=== PATIENT | male | born 1980 | race Caucasian/White ===

== ENCOUNTER → 2018-10-18 | Emergency (ER) | payer MEDICAID ==
[~2018-10-18] MED LIST: INS GLAR 100 UN/ML (ER ONLY) 100 UNIT/ML SUBQ ONE; INSU100I30 SQ; LISI-362 PO
--- NOTE | 2018-10-18 20:58 | ER Report ---
History and Physical Time Seen By MD: 20:58 HPI/ROS CHIEF COMPLAINT: needs insulin HISTORY OF PRESENT ILLNESS: 38 year old male presents to ED with need for refill of insulin pen. Patient is from [place] and has been working on the [employer] for the past month and he will continue to be hear another month. He ran out of his insulin and lisinopril about two weeks ago. Patient states he takes lantus BID and lisinopril daily. He is also supposed to be taking a short acting insulin, however he hasn't taken for quite sometime, is out of this med, and does not know the medication. Patient reports polydipsia, blurry vision, tingling in his feet. No polyuria, nausea, vomiting, chest pain, SOB. Allergies: Coded Allergies: No Known Drug Allergies (Unverified , 10/18/18) Home Meds Active Scripts Lisinopril (LISINOPRIL) 10 Mg Tablet, 10 MG PO QDAY for 30 Days, #30 TAB Prov:DWAYNE MENEZES 10/18/18 Insulin Glargine 100 Un/Ml Pen (LANTUS SOLOSTAR PEN) 100 Unit/1 Ml Insuln.pen, 100 UNIT SQ BID, #1 PEN Take 20 units in the morning and 30 units at night. Prov:DWAYNE MENEZES 10/18/18 Past Medical/Surgical History Past medical hx of diabetes and right wrist fracture. Past surgical hx of umbilical hernia repair. Reviewed Nurses Notes: Yes Constitutional Vital Sign - Last 24 Hours 10/18/18 10/18/18 10/18/18 10/18/18 20:55 20:59 21:00 21:05 Pulse 97 100 97 Resp 20 B/P (MAP) 137/93 137/93 (108) Pulse Ox 92 92 92 O2 Delivery Room Air 10/18/18 10/18/18 10/18/18 10/18/18 21:10 21:15 21:20 21:25 Pulse 96 96 95 95 Pulse Ox 93 92 92 92 10/18/18 10/18/18 21:30 21:35 Pulse 95 94 B/P (MAP) 138/88 (105) Pulse Ox 90 93 Physical Exam General appearance: Alert no distress. Respiratory: Chest is non tender, lungs are clear to auscultation. Cardiac: Regular rate and rhythm DIFFERENTIAL DIAGNOSIS: After history and physical exam differential diagnosis was considered for Diabetes. Medical Decision Making Data Points Laboratory Hematology Test 10/18/18 21:09 Whole Blood Glucose 278 mg/DL (75-110) Chemistry Test 10/18/18 21:09 Whole Blood Glucose 278 mg/DL (75-110) ED Course/Re-evaluation ED Course Upon arrival to the ED, patient admitted to an exam room, hx and physical obtained, differentials considered. Patient is from [place] and has been working on the [employer] for the past month and he will continue to be hear another month. He ran out of his insulin and lisinopril about two weeks ago. Patient states he takes lantus BID and lisinopril daily. He is also supposed to be taking a short acting insulin, however he hasn't taken for quite sometime, is out of this med, and does not know the medication. Patient reports polydipsia, blurry vision, tingling in his feet. No polyuria, nausea, vomiting, chest pain, SOB. Blood glucose currently 278. Will give nighttime dose of lantus before he l eaves the ED. Called patient's pharmacy to try to get a list of his meds, however [facility] is completely closed. Called [facility] as this is the pharmacy [facility] transfered to, but they had no record of this patient. Will give patient a prescription for lantus and lisinopril and have him follow-up with a PCP in [facility]. Patient agrees with plan of care. Decision to Disposition Date: Oct 18, 2018 Decision to Disposition Time: 21:47 Depart Departure Latest Vital Signs Vital Signs Date Time Temp Pulse Resp B/P (MAP) Pulse Ox O2 Delivery O2 Flow Rate FiO2 10/18/18 21:35 94 93 10/18/18 21:30 138/88 (105) 10/18/18 20:55 20 Room Air Impression: Primary Impression: Diabetes Condition: Condition Unchanged Disposition: HOME OR SELF-CARE New Scripts Lisinopril (LISINOPRIL) 10 Mg Tablet 10 MG PO QDAY for 30 Days, #30 TAB Prov: DWAYNE MENEZES 10/18/18 Insulin Glargine 100 Un/Ml Pen (LANTUS SOLOSTAR PEN) 100 Unit/1 Ml Insuln.pen 100 UNIT SQ BID, #1 PEN Take 20 units in the morning and 30 units at night. Prov: DWAYNE MENEZES 10/18/18 Patient Instructions: Type 2 Diabetes in Adults (DC) Additional Instructions: Please drink plenty of water and get plenty of rest. Take insulin twice a day as ordered. Please follow-up with a primary care provider in town to get refills of medication and manage your diabetes. Please return to the ER with any difficulty breathing, high blood pressure, or any other concerns. Problem Qualifiers Primary Impression: Diabetes Diabetes mellitus type: type 2 Diabetes mellitus intermediate school teacher insulin use: with intermediate school teacher use Diabetes mellitus complication status: with hyperglycemia Qualified Codes: E11.65 - Type 2 diabetes mellitus with hyperglycemia; Z79.4 - terminal operations supervisor (current) use of insulin DWAYNE MENEZES Oct 18, 2018 20:58
[2018-10-18 21:30] VITALS: BP 138/88
== END ==
LOC: ER 21:04
DX: E11.65 Type 2 diabetes mellitus with hyperglycemia (principal)
CPT/HCPCS: 36416; 82948; 99282; J1815

== ENCOUNTER 2018-12-09 22:00 | Emergency (ER) | payer MEDICAID ==
[~2018-12-09 22:00] MED LIST changes: -INS GLAR 100 UN/ML (ER ONLY) 100 UNIT/ML SUBQ ONE
[2018-12-09] MEDS ORDERED: METF-452 PO (22:12)
--- NOTE | 2018-12-09 22:23 | ER Report ---
History and Physical Time Seen By MD: 22:17 Hx. of Stated Complaint: PT REPORTS CHEST PAIN FOR 2 DAYS. WORSENING TODAY. PT REPORTS HE HAS HAD PAIN LIKE THIS BEFORE. HPI/ROS CHIEF COMPLAINT: Chest pain 2 days HISTORY OF PRESENT ILLNESS: 38-year-old male type II diabetic on metformin for several years, presents ambulatory to the ER complaining of left pectoralis and left shoulder pain. He notes some numbness down his left arm, some shortness of breath, some nausea. Patient denies cardiac history. Patient notes aggravation and increased pain with flexing of his pectoralis muscles and flexing of his neck onto his chest. Patient recalls no specific injury. Patient denies fever, chills, productive cough or shortness of breath. Patient denies leg swelling or calf pain. REVIEW OF SYSTEMS: Respiratory: No cough, no dyspnea. Cardiovascular: As above Gastrointestinal: No vomiting, no abdominal pain. Musculoskeletal: No back pain. Allergies: Coded Allergies: No Known Drug Allergies (Unverified , 12/09/18) Home Meds Active Scripts Lisinopril (LISINOPRIL) 10 Mg Tablet, 10 MG PO QDAY for 30 Days, #30 TAB Prov:DWAYNE MENEZES [facility] 10/18/18 Reported Medications Metformin Hcl (METFORMIN HCL) 1,000 Mg Tablet, 1 TAB PO BID, TAB 12/09/18 Discontinued Scripts Insulin Glargine 100 Un/Ml Pen (LANTUS SOLOSTAR PEN) 100 Unit/1 Ml Insuln.pen, 100 UNIT SQ BID, #1 PEN Take 20 units in the morning and 30 units at night. Prov:DWAYNE MENEZES [facility] 10/18/18 Reviewed Nurses Notes: Yes Old Medical Records Reviewed: Yes Hx Substance Use Disorder: No Hx Alcohol Use: No Constitutional Vital Sign - Last 24 Hours 12/09/18 12/09/18 12/09/18 12/09/18 22:02 22:04 22:15 22:30 Temp 98.3 Pulse 80 82 78 Resp 18 11 28 B/P (MAP) 147/89 (108) 147/89 132/79 (96) Pulse Ox 95 94 93 O2 Delivery Room Air 12/09/18 12/09/18 22:45 23:00 Pulse 75 74 Resp 23 13 B/P (MAP) 125/83 (97) Pulse Ox 93 93 Physical Exam Vital signs stable, afebrile, pulse ox normal General Appearance: The patient is alert, has no immediate need for airway protection and no current signs of toxicity. No acute distress HEENT: Pupils equal and round no injection. TMs normal, oropharynx no redness or exudate, mucous. Membranes are moist Respiratory: Chest is non tender, lungs are clear to auscultation., No chest wall tenderness Cardiac: regular rate and rhythm Gastrointestinal: Abdomen is soft and non tender, no masses, bowel sounds normal. Musculoskeletal: Neck: Neck is supple and non tender. Extremities have full range of motion and are non tender. No edema, no calf tenderness Skin: No rashes or lesions. DIFFERENTIAL DIAGNOSIS: After history and physical exam differential diagnosis was considered for chest pain including but not limited to myocardial ischemia, pericarditis pulmonary embolus, chest wall pain, pleural inflammation and pulmonary infectious causes. Medical Decision Making Data Points Result Diagram: 12/09/18220112/09/182201 Laboratory Hematology Test 12/09/18 22:02 White Blood Count 11.6 k/uL (4.5-11.0) H Red Blood Count 5.24 M/uL (4.00-5.60) Hemoglobin 16.1 g/dL (14.0-18.0) Hematocrit 46.2 % (42.0-52.0) Mean Corpuscular Volume 88.2 fL (80.0-96.0) Mean Corpuscular Hemoglobin 30.8 pg (26.0-33.0) Mean Corpuscular Hemoglobin Concent 34.9 g/dL (32.0-36.0) Red Cell Distribution Width 13.8 % (11.5-14.5) Platelet Count 249 K/uL (150-450) Mean Platelet Volume 9.3 fL (7.2-11.1) Neutrophils (%) (Auto) 48.5 % (39.4-72.5) Lymphocytes (%) (Auto) 39.4 % (17.6-49.6) Monocytes (%) (Auto) 8.4 % (4.1-12.4) Eosinophils (%) (Auto) 2.8 % (0.4-6.7) Basophils (%) (Auto) 0.9 % (0.3-1.4) Nucleated RBC Relative Count (auto) 0.0 /100WBC Neutrophils # (Auto) 5.6 K/uL (2.0-7.4) Lymphocytes # (Auto) 4.6 K/uL (1.3-3.6) H Monocytes # (Auto) 1.0 K/uL (0.3-1.0) Eosinophils # (Auto) 0.3 K/uL (0.0-0.5) Basophils # (Auto) 0.1 K/uL (0.0-0.1) Nucleated RBC Absolute Count (auto) 0.01 K/uL Chemistry Test 12/09/18 22:02 Sodium Level 135 mmol/L (137-145) Potassium Level 3.7 mmol/L (3.5-5.0) Chloride Level 100 mmol/L (98-107) Carbon Dioxide Level 26 mmol/L (22-30) Blood Urea Nitrogen 13 mg/dl (9-21) Creatinine 0.80 mg/dl (0.66-1.25) Glomerular Filtration Rate Calc > 60.0 Random Glucose 257 mg/dl (75-110) Calcium Level 9.0 mg/dl (8.4-10.2) Total Bilirubin 0.5 mg/dl (0.2-1.3) Aspartate Amino Transf (AST/SGOT) 26 U/L (0-35) Alanine Aminotransferase (ALT/SGPT) 42 U/L (0-56) Alkaline Phosphatase 93 U/L (0-126) Troponin I < 0.012 ng/ml B-Type Natriuretic Peptide < 5 pg/ml (0-100) Total Protein 7.4 g/dl (6.3-8.2) Albumin 4.2 g/dl (3.5-5.0) Coagulation Test 12/09/18 22:02 Prothrombin Time 12.9 seconds (12.0-14.4) Prothromb Time International Ratio 0.97 Activated Partial Thromboplast Time 30 seconds (23-35) EKG/Imaging EKG Interpretation 12 lead EK Rhythm: normal sinus rhythm Mitchell: normal QRS: normal ST segments: normal, no evidence of ischemia, no old EKGs for comparison Imaging X-ray: Single view portable chest x-ray was obtained. I viewed the images myself on the PACS system. My interpretation of the images is: No infiltrate, no effusion, normal mediastinum. The radiologist interpretation had no clinically significant variation from this interpretation. ED Course/Re-evaluation Clinical Indication for ER IV: IV Access ED Course Patient was admitted to an examination room. H&P was done. The differential diagnoses was considered. On clinical examination. Patient with left chest wall pain in the pectoralis region. It's aggravated by palpation and movement. Diagnostic EKG is unremarkable for evidence of ischemia. His troponin, d-dimer, BNP are negative. His chest x-ray is normal. Patient is discharged home and advised ibuprofen for musculoskeletal chest pain. He is advised to follow-up with primary care if unimproved in 3-5 days. Decision to Disposition Date: Dec 09, 2018 Decision to Disposition Time: 23:02 Depart Departure Latest Vital Signs Vital Signs Date Time Temp Pulse Resp B/P (MAP) Pulse Ox O2 Delivery O2 Flow Rate FiO2 12/09/18 23:00 74 13 125/83 (97) 93 12/09/18 22:04 98.3 Room Air Impression: Primary Impression: Chest wall pain Additional Impression: Type II diabetes mellitus Condition: Improved Disposition: HOME OR SELF-CARE Referrals: HARLEY POLANCO MD, FARRUKH MD Patient Instructions: Chest Wall Pain (ED) Additional Instructions: Take ibuprofen 200 mg 3 tablets 3 times a day with food Apply heating pad to your chest wall Follow-up with your primary care if unimproved in 4-5 days Problem Qualifiers Additional Impression: Type II diabetes mellitus Diabetes mellitus senior living insulin use: without senior living use Diabetes mellitus complication status: without complication Qualified Codes: E11.9 - Type 2 diabetes mellitus without complications LANCE ROJAS DO Dec 09, 2018 22:23
[2018-12-09] MEDS ORDERED: ASPIRIN 81 MG CHEW PO ONE (22:25)
[2018-12-09 22:30] LABS: PLATELET COUNT, AUTOMATED 249 K/uL (150-450)
[2018-12-09 22:35] LABS: INR 0.97
[2018-12-09 23:00] VITALS: BP 125/83
--- NOTE | 2018-12-09 23:12 | RADIOLOGY IMAGING REPORT ---
FACILITY: [facility] PATIENT NAME: Osvaldo Nelson : 1980 MR: [id number] V: [id number] EXAM DATE: ORDERING PHYSICIAN: LANCE ROJAS TECHNOLOGIST: Location: [facility] Patient: Osvaldo Nelson : 1980 Visit/Account:[id number] Date of Sevice: 12/09/2018 EXAMINATION: Portable AP Chest HISTORY: Chest pain. COMPARISON: None. FINDINGS: The lungs are clear. No focal consolidation or pleural effusion. No pneumothorax. Normal cardiomedi astinal silhouette, with normal heart size and pulmonary vascularity. Visualized osseous structures are unremarkable. IMPRESSION: Negative chest. Report Dictated By: Dane Figueroa MD at 12/09/2018 11:01 PM Report E-Signed By: Dane Figueroa MD at 12/09/2018 11:03 PM [id number]
--- NOTE | 2018-12-09 23:20 | EKG ---
FACILITY: [facility] - [place] PATIENT NAME: RADHA CHARLES : [id number] MR: [id number] V: [id number] EXAM DATE: ORDERING PHYSICIAN: LANCE ROJAS TECHNOLOGIST: FELICITAS Tarango Reason : CP LEFT PECT X 2 DAYS Blood Pressure : / mmHG Vent. Rate : 081 BPM Atrial Rate : 081 BPM P-R Int : 174 ms QRS Dur : 096 ms QT Int : 360 ms P-R-T Axes : 038 -20 -01 degrees QTc Int : 418 ms Normal sinus rhythm Normal ECG No previous ECGs available Confirmed by KERI GOVEA ([id number]) on 12/10/2018 6:33:59 AM Referred By: Confirmed By:KERI GOVEA
== END 2018-12-09 23:14 | disposition home or self-care (01) ==
LOC: ER 22:24
DX: E07.9 Disorder of thyroid, unspecified (principal); E11.9 Type 2 diabetes mellitus without complications; R06.02 Shortness of breath
CPT/HCPCS: 71045; 82040; 82247; 82310; 82374; 82435; 82565; 82947; 83880; 84075; 84132; 84155; 84295; 84450; 84460; 84484; 84520; 85025; 85610; 85730; 93005; 99284